=== PATIENT | male | born 1995 | race African-American/Black ===

== ENCOUNTER 2020-05-12 18:18 | Emergency (ER) | payer SELFPAY ==
[2020-05-12 18:29] VITALS: BP 140/80; PULSE 66; RESP 16; TEMP 36.6; O2SAT 97
--- NOTE | 2020-05-12 18:43 | ED.GENADULT ---
HPI - General Adult General Chief complaint: Unspecified Stated complaint: congestion History of Present Illness HPI narrative: Cesar is a 25M with a PMH of tobacco abuse that presented to the ED from work with URI type symptoms. He has had two days of intense congestion, rhinorrhea, and drainage as well as the occasional cough. He denies chest pain, SOB, fevers, chills, N/V, diarrhea and body aches. He was sent from work to be evaluated for COVID Related Data Home Medications Medication Instructions Recorded Confirmed gabapentin 300 mg PO TID 05/12/20 05/12/20 Allergies Allergy/AdvReac Type Severity Reaction Status Date / Time No Known Allergies Allergy Verified 05/12/20 18:40 Review of Systems Constitutional: Constitutional: Denies chills, Denies fever(s) and Denies weakness Eyes: Eyes: Reports no additional eye complaints ENT: Reports as per HPI Cardiovascular: Cardiovascular: Reports no additional cardiovascular complaints Respiratory: Respiratory: Denies chest congestion, Reports cough, Denies dyspnea and Denies wheezing Gastrointestinal: Gastrointestinal: Reports no additional gastrointestinal complaints Genitourinary: Genitourinary: Reports no additional male genitourinary complaints Musculoskeletal: Musculoskeletal: Reports no additional musculoskeletal complaints Integumentary/Breasts: Skin/Breast: Reports system reviewed and no additional complaints, except as docu Neurologic: Reports system reviewed and no additional complaints, except as documented Psychiatric: Psychiatric: Reports no additional psychiatric complaints Endocrine: Endocrine: Reports no additional endocrine complaints Hematologic/Lymphatic: Hematologic/Lymphatic: Reports no additional hematologic/lymphatic complaints Allergic/Immunologic: Allergic/Immunologic: Reports no additional allergic/immunologic complaints [facility] Social History Social History Gender identity (if verbalized by the patient): Male Sexual Orientation (if Verbalized by the Patient): Straight or Heterosexual Exam Const: General: no acute distress and alert Orientation/consciousness: patient oriented x3 Limitations: No altered mental status HENMT: Other: Normocephalic, atraumatic, EOMI, erythematous and boggy nasal turbinates, cobblestoning in the posterior oropharynx, no lymphadenopathy. Moist mucous membranes Eyes: Conjunctivae: conjunctivae normal Pupils: Equal, round and reactive pupils present Neck: Neck: normal visual inspection and no lymphadenopathy Resp: Effort & Inspection: normal respiratory effort Auscultation: clear to auscultation bilaterally Cardio: Rate: regular rate Rhythm: regular rhythm GI: GI Palp: Yes Soft to palpation, No Tenderness to palpation present (GI) and No Guarding due to palpation present (GI) Skin: General skin exam: normal color Rashes: no rashes Neuro: General: patient oriented x3 and moves all extremities Extrem: General: normal to inspection Psych: Mental Status: mental status grossly normal Course Course Emergency Course: Cesar was seen and evaluated. A COVID swab was performed. He was informed that this was likely a URI and to use OTC treatments but he should quarantine until he gets his COVID results. As his vitals were wnl and symptoms were most likely from a viral URI he was discharged. Vital Signs Vital signs: Vital Signs Temperature 98 F 05/12/20 18:29 Pulse Rate 66 05/12/20 18:29 Respiratory Rate 16 05/12/20 18:29 Blood Pressure 140/80 05/12/20 18:29 Pulse Oximetry 97 05/12/20 18:29 Temperature 98 F 05/12/20 18:52 Pulse Rate 70 05/12/20 18:52 Respiratory Rate 18 05/12/20 18:52 Blood Pressure 132/77 05/12/20 18:52 Pulse Oximetry 98 05/12/20 18:52 Medical Decision Making Vital Signs Vital Signs: Vital Signs Temperature 98 F 05/12/20 18:29 Pulse Rate 66 05/12/20 18:29 Respirator
[2020-05-12 18:52] VITALS: BP 132/77; PULSE 70; RESP 18; TEMP 36.6; O2SAT 98
[2020-05-14 13:52] LABS: SARS-CoV-2 RNA PCR Negative
== END 2020-05-12 18:53 | disposition home or self-care (01) ==
PROVIDERS: Emergency Provider Family Medicine
DX: J06.9 Acute upper respiratory infection, unspecified (principal); Z20.828 Contact with and (suspected) exposure to other viral communicable diseases
CPT/HCPCS: 87635; 99282; 99283; C9803; U0003

== ENCOUNTER 2025-05-09 10:42 | Emergency (ER) | payer SELFPAY ==
--- OUTSIDE RECORDS SUMMARY | 2024-12-25 05:46 | XMS_ITS | Continuity of Care Document ---
Author Organization [facility] Address [address] [place] [address] Phone Care Team Providers Care Adult Basic Education Teacher Name Role Phone PAT Kuhn Angela Unavailable Fatimah vailable Procedures Procedure Date Limit oral eval problem focused 012 Dental panoramic film Advance Directives Directive Yes / No Effective Date File Name No Information Encounters Encounter Description Practice Location Reason(s) For Visit Diagnoses Date Provider Providers [facility] [address], [place], [place], [id number], tel:[phone] [facility] [place] No Information Job Carreon. [address], [place], [place], [id number], . tel:[phone] [facility] , [address], [place], [place], [address], tel:[phone] [facility] Dental examination 2 No Information Family History Family Member Type Diagnosis Age At Onset No Information Payers Payer name Insurance type Covered republican ID Authoriza tion(s) No Information Social History Type Description Quantity Date Captured Comments Sex Male Smoking Status No Information Chief Complaint And Reason For Visit No Information Reason For Referral Reason For Referral No Information History Of Present Illness Encounter Date Complaint History Of Prese nt Illness No Information Functional Status Date Functional Assessmen t No Information Instructions Date Instruction Additional Infor mation No Information Assessments Type Assessment Date No Information Patient Care Teams Name Effective Dates (start - stop) Status Members No Information
--- OUTSIDE RECORDS SUMMARY | 2024-12-25 05:46 | XMS_ITS | Continuity of Care Document ---
Author Organization [facility] Address [address] [place] [address] Phone Care Team Providers Care Building Services Coordinator Name Role Phone PAT Kuhn Angela Unavailable Fatimah vailable Procedures Procedure Date Limit oral eval problem focused 012 Dental panoramic film Advance Directives Directive Yes / No Effective Date File Name No Information Encounters Encounter Description Practice Location Reason(s) For Visit Diagnoses Date Provider Providers [facility] [address], [place], [place], [id number], tel:[phone] [facility] [place] No Information Job Carreon. [address], [place], [place], [address], . tel:[phone] [facility] , [address], [place], [place], [address], tel:[phone] [facility] Dental examination 2 No Information Family History Family Member Type Diagnosis Age At Onset No Information Payers Payer name Insurance type Covered constitution party ID Authoriza tion(s) No Information Social History [...]
[2025-05-09 10:43] VITALS: BP 155/93; PULSE 73; RESP 18; TEMP 36.6; O2SAT 99
--- NOTE | 2025-05-09 11:07 | PC.NURSE ---
covid culture sent to lab
--- NOTE | 2025-05-09 11:12 | ED.URI ---
HPI - URI/Sore Throat General Chief Complaint: Upper Respiratory Infection Stated Complaint: congestion, cough, runny nose Time Seen by Provider: 05/09/25 10:46 Source: patient Mode of arrival: ambulatory Limitations: no limitations History of Present Illness HPI Narrative: This is a 30-year-old male with some cough and congestion x1 week with no shortness of breath no audible wheezing no fever chills no chest pain no nausea or vomiting no abdominal pain. MD elicited complaint: cough Onset (ago): week(s) Consistency: constant Severity: mild Description of mucous: clear Able to tolerate fluids by mouth: Yes Exacerbating factors: nothing Relieving factors: nothing Related Data Home Medications ?Medication ?Instructions ?Recorded ?Confirmed ?Last Taken ?Type gabapentin 300 mg capsule 300 mg PO TID 05/12/20 05/12/20 Unknown History Allergies Allergy/AdvReac Type Severity Reaction Status Date / Time No Known Allergies Allergy Verified 05/09/25 10:43 Review of Systems Review of Systems: All systems reviewed & are unremarkable except as noted in HPI and below PMFSH Past Medical History Medical History Patient denies medical problems Social History Social History Gender identity (if verbalized by the patient): Male Sexual Orientation (if Verbalized by the Patient): Straight or Heterosexual Exam Const: General: healthy appearing Nutritional Appearance: well nourished Orientation/consciousness: patient oriented x3 Limitations: no limitations HENMT: Head: normal to inspection Neck: Neck: normal visual inspection, no lymphadenopathy and no meningeal signs Chest: Chest palpation & inspection: normal inspection of the chest Resp: Effort & Inspection: normal respiratory effort Auscultation: clear to auscultation bilaterally Cardio: Rate: regular rate Rhythm: regular rhythm GI: GI Palp: Yes Soft to palpation Auscultation: normal bowel sounds : General: Yes bladder normal to palpation Skin: General skin exam: normal color Rashes: no rashes Course Course Emergency Course: patient had a COVID RSV and influenza performed and reviewed, Vital Signs Vital signs: Vital Signs Temperature 36.6 C 05/09/25 10:43 Pulse Rate 73 05/09/25 10:43 Respiratory Rate 18 05/09/25 10:43 Blood Pressure 155/93 H 05/09/25 10:43 Pulse Oximetry 99 05/09/25 10:43 Oxygen Delivery Room Air 05/09/25 10:43 Temperature 36.6 C 05/09/25 10:43 Pulse Rate 73 05/09/25 10:43 Respiratory Rate 18 05/09/25 10:43 Blood Pressure 155/93 H 05/09/25 10:43 Pulse Oximetry 99 05/09/25 10:43 Oxygen Delivery Room Air 05/09/25 10:43 MDM - URI/Sore Throat Lab Data Labs: Lab Results 05/09/25 Range/Units 11:01 Influenza A (RT-PCR) Pending Influenza B (RT-PCR) Pending RSV (RT-PCR) Pending SARS-CoV-2 RNA (RT-PCR) Pending Critical Care Time Critical Care Time Critical Care Time: No Discharge Plan Discharge Clinical Impression: Bronchitis Patient Disposition: Home Condition: Stable Instructions: Antibiotic Form, Acute Bronchitis (ED) Additional Instructions: advised patient to take medication as prescribed and follow with primary if symptoms persist or worsen. Patient Language: Azeri Prescriptions: New azithromycin [Zithromax Z-Samuel] 250 mg tablet See Rx Instructions .ROUTE .COMPLEX Qty: 6 0RF Rx Instructions: For 250 mg dose pack: take 500 mg today (day 1), then 250 mg for 4 days (days 2-5) No Action gabapentin 300 mg Capsule 300 mg PO TID Follow-up/Referrals: UNKNOWN,DOCTOR [Primary Care Provider] Stand Alone Forms: Work/School Release IP
--- OUTSIDE RECORDS SUMMARY | 2025-05-09 11:20 | XMS_ITS | Clinical Summary ---
Author Organization [facility] Address [address] [address] Care Team Providers Care Bank Operations Officer Name Role Phone Unavailable Primary Care Provider Unavailabl e Source Comments [facility] [address],non-owned Affiliates and Associated Physician Practices is amultiple site organization consisting of ambulatory clinics and hospital sitesin [place], [place], [place] and [place]. This disclosure is being madepursuant to the Care Everywhere program and may not contain all information available regarding this patient. Last updated 18.[facility] [address] Allergies No known active allergies Immunizations Immunization Administration Dates Next Due TDAP (7yrs+) 09/08/2021 Social History Tobacco Use Types Packs/Day Years Used Date Smoking Tobacco: Never Smokeless Tobacco: Never Alcohol Use Standard Drinks/Week Comments Yes 0 (1 standard drink = 0.6 oz pur e alcohol) occasionally Sex and Gender Information Value Date Recorded Sex Assigned at Not on file Legal Sex Male 5:37 AM SOC[employer] WORK [employer] MEMBER Gender Identity Not on file Sexual Orientation Not on file Last Filed Vital Signs Vital Sign Reading Time Taken Comments Blood Pressure 134/82 09/07/2021 7:16 PM [employer] WORK [employer] MEMBER Pulse 69 09/07/2021 7:16 PM [employer] WORK [employer] MEMBER Temperature 37.1 C (98.8 F) 09/07/2021 7:16 PM [employer] MEMBER Respiratory Rate 16 09/07/2021 7:16 PM [employer] WORK [employer]AC[employer] MEMBER Oxygen Saturation 100% 09/07/2021 7:16 PM [employer] WORK [employer]AC[employer] MEMBER Inhaled Oxygen Concentration - - Weight 72.6 kg (160 lb) 09/07/2021 7:16 PM [employer] MEMBER Height 177.8 cm (5' 10) 09/07/2021 7:16 PM [employer] MEMBER Body Mass Index 22.96 09/07/2021 7:16 PM [employer] MEMBER Plan of Treatment Health Maintenance Due Date Last Done Comments HIV SCREENING 2011 HEPATITIS C SCREENING 04/03/2014 HEPATITIS B VACCINE (1 of 3 - 19+ 3-dose series) 2015 HPV VACCINE (1 - 3-dose SCDM series) 2023 COVID-19 VACCINE (1 - 2023-2 5 season) 2024 DEPRESSION SCREENING 09/10/2024 INFLUENZA VACCINE (#1) 2025 DTAP/TDAP/TD VACCINES (2 - T d or Tdap) 09/08/2031 09/08/2021 ZOSTER VACCINE (1 of 2) 2046 HIB VACCINE Aged Out No longer eligi ble based on patient's age to complete this topic MENINGOCOCCAL (Group B) VACC INE SHARED DECISION-MAKING Aged Out No longer eligibl e based on patient's age to complete this topic MENINGOCOCCAL GROUPS A/C/Y/W VACCINE Aged Out No longer eligible b ased on patient's age to complete this topic PNEUMOCOCCAL VACCINE Aged Out No long er eligible based on patient's age to complete this topic
[2025-05-09 11:45] LABS: Influenza A QL RT-PCR Negative (Negative); Influenza B QL RT-PCR Negative (Negative); RSV RNA, RT-PCR Negative (Negative); SARS-CoV-2 RNA PCR Negative (Negative)
[2025-05-09 11:58] VITALS: BP 155/93; PULSE 73; RESP 18; TEMP 36.6; O2SAT 99
== END 2025-05-09 11:58 | disposition home or self-care (01) ==
LOC: CHSED 11:18
PROVIDERS: Emergency Provider Emergency Medicine; Referring Provider Internal Medicine
DX: J40 Bronchitis, not specified as acute or chronic (principal); Z20.822 Contact with and (suspected) exposure to COVID-19
CPT/HCPCS: 87637; 99283